=== PATIENT | male | born 1990 | race Caucasian/White ===

== ENCOUNTER 2022-12-04 14:44 | Outpatient (AMB) | payer OTHER, SELFPAY ==
[2022-12-04 15:07] VITALS: BP 126/74; PULSE 88; BMI 30.1
--- NOTE | 2022-12-04 15:07 | MHC.PC.OV ---
Vital Signs 12/04/22 15:07 Height 5 ft 11 in Weight 216 lb BMI 30.1 BP 126/74 Blood Pressure Location Lt brachial Position Sitting Pulse 88 Pulse Source Pulse Oximeter Oxygen Delivery Method Room Air Intake Visit Reasons: New patient-Hormone medication Intake Note: Patient is here as a new patient, requesting increase in hormone pills. Allergies coconut Allergy (Mild, Verified 12/04/22 15:15) hives. penicillin Allergy (Mild, Uncoded 12/04/22 15:15) nausea, vomiting Medication List - Last Reconciled 12/04/22 by Deny Swenson MD atorvastatin 40 mg PO BEDTIME bupropion HCl 150 mg PO BID calcium carbonate-mag hydroxid 700-300 mg tabs PO cholecalciferol (vitamin D3) 25 mcg PO DAILY escitalopram oxalate (Lexapro) 20 mg PO DAILY [estradiol PO] guaifenesin 200 mg PO Q4H PRN guanfacine 1 mg PO BEDTIME hydroxyzine HCl mg PO ibuprofen 400 mg PO Q6H melatonin mg PO naloxone 4 mg/actuation (Narcan) 4 mg intranasal Q3M PRN naltrexone microspheres ER (Vivitrol) 380 mg IM Q4W pyridoxine (vitamin B6) 25 mg PO DAILY simethicone (Gas Relief (simethicone)) 180 mg PO DAILY spironolactone (Aldactone) 100 mg PO DAILY Tobacco use date assessed: 12/04/22 Dental Screening Did you have a dental visit in the last 12 months?: No Did you have a dental problem in the last 6 months where you did not have access to dental care?: No Was dental information given to patient?: No HPI New patient-Hormone medication HPI Details New patient Prior PCP:Claude Blevins Last office visit/CPE: >1 yr Acute issue(s): Requesting hormone medications -He states 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 -Been on hormones x6 months Transgender and would like Referral for Vaginoplasty Transitioning x6 mo Liver concerns PMHx: Alcoholism - in remission. WANDY & MDD. Gender dysphoria; now transitioning. HLD. SurgHx: Gum graft 2010. R Fib fracture FHx: Brother: Bipolar. Mom: Dementia. Dad: HLD, Prostate Cancer SocHx: Quit cigs at 24. Vapes occasionally. EtOH quit Jun 2022 & Vivatrol. No drugs. [facility] Medical History (Updated 12/04/22 @ 16:09 by Charly Payne) Aftercare following right ankle joint replacement surgery Surgical History (Updated 12/04/22 @ 15:20 by Audrey Mckeon [facility]) [place] teeth extracted Family History (Updated 12/04/22 @ 15:22 by Audrey Mckeon CMA) Mother High cholesterol Brother Bipolar 1 disorder Maternal Grandmother Advanced dementia Social History (Updated 12/04/22 @ 15:26 by Audrey Mckeon [employer]) Household Members: Other Both parents involved: No Caregiver staying overnight: No Housing: House Housing Other:: recovery house Are you a primary emergency care tech to a significant other at home: No Do you presently have visiting nurse or other home services: No 75 years or older and lives alone: No Alcohol intake: former Patient Tobacco Use Status: Former Tobacco user e-Cigarette/Vaping Use: Currently Using service: No Current occupational status: unemployed Cognitive needs: No Hearing needs: No Vision needs: No Questionnaire PHQ-9 Over the last 2 weeks, how often have you been bothered by any of the following problems? 1. Little interest or pleasure in doing things: several days 2. Feeling down, depressed, or hopeless: more than half the days 3. Trouble falling or staying asleep, or sleeping too much: more than half the days 4. Feeling tired or having little energy: several days 5. Poor appetite or overeating: more than half the days 6. Feeling bad about yourself - or that you are a failure or have let yourself or your family down: nearly every day 7. Trouble concentrating on things, such as reading the newspaper or watching television: several days 8. Moving or speaking so slowly that other people could have noticed. Or the opposite - being so fidgety or restless that you have been moving around a lot more than usual: not at all 9. Thoughts that you would be better off or of hurting yourself in some way: several days Total score: 13 Source: Developed by Drs. Genaro Recio, Sanjana Avilez, Veto Garcia and colleagues, with an educational navid from [employer]. Thrive Questionnaire I am a: Patient What is your living situation today?: I have a steady place to live Within the past 12 months, did the food you bought not last and you didn't have the money to get more?: Never true Within the past 12 months, did you worry whether your food would run out before you got money to buy more?: Often true Do you have trouble paying for medicines?: No Do you have trouble getting transportation to medical appointments?: No Do you have trouble paying your heating and electricity bill?: No Do you have trouble taking care of your child, family member or friend?: No Do you have trouble with day-to-day activities such as bathing, preparing meals, shopping, managing finances, etc.?: No Are you currently unemployed and looking for a job?: No Are you interested in more education?: Yes AUDIT C Alcohol Use Questionnaire (AUDIT-C) 1. How often do you have a drink containing alcohol?: Never 3. How often do you have six or more drinks on one occasion?: Never Total Score: 0 WANDY-7 AMB Questionnaire WANDY-7 Feeling nervous, anxious, or on edge: 2 = More than half the days Not being able to stop or control worryin = Several days Worrying too much about different things: 2 = More than half the days Trouble relaxin = Several days Being so restless that it is hard to sit still: 2 = More than half the days Becoming easily annoyed or irritable: 0 = Not at all Feeling afraid as if something awful might happen: 2 = More than half the days Total WANDY-7 score (0-4 normal; 5-9 mild; 10-14 moderate; 15-21 severe): 10 Source: Developed by Drs. Genaro Recio, Sanjana Avilez, Veto Garcia and colleagues, with an educational navid from [employer]. Review of Systems Const Denies chills, Denies fatigue, Denies fever(s), Denies headache(s) and Denies weakness ENT Denies dizziness and Denies headache(s) Card Denies chest pain, Denies lightheadedness, Denies dyspnea and Denies other (Palpitations) Resp Denies cough, Denies dyspnea, Denies wheezing and Denies other ( shortness of breath) Musc Denies numbness and Denies tingling Neuro Denies dizziness, Denies headache(s), Denies numbness, Denies tingling, Denies paresthesias and Denies weakness Psych Denies anxiety and Denies depression Endo Denies fatigue Aller/Immun Denies wheezing Physical exam (Primary Care) Vital Signs: Last Vital Signs Pulse 88 12/04/22 15:07 BP 126/74 12/04/22 15:07 Oxygen Delivery Method Room Air 12/04/22 15:07 BMI result Body Mass Index 30.1 Tobacco/Smoking Status: Tobacco use Status Tobacco use date assessed 12/04/22 12/04/22 15:39 Patient Tobacco Use Status Former Tobacco user 12/04/22 15:39 e-Cigarette/Vaping Use Currently Using 12/04/22 15:39 PHQ-9: PHQ-9 Score PHQ-9: Total score 13 12/04/22 15:49 Const General: no acute distress and well developed Nutritional Appearance: well nourished Orientation/consciousness: patient oriented x3 HENMT Head: Yes normocephalic and Yes atraumatic Eyes General: appearance normal, both eyes and all related structures Pupils: Equal, round and reactive pupils present EOM: EOMs intact bilaterally Resp Effort & Inspection: normal respiratory effort Auscultation: clear to auscultation bilaterally Cardio Rate: regular rate Rhythm: regular rhythm Heart sounds: S1 normal heart sound present, S2 normal heart sound present, no gallops, no murmurs and no rubs Neuro General: patient oriented x3 and gait normal Cranial nerves: Yes Equal, round and reactive pupils present Psych Affect: normal affect Assessment and Plan Assessment & Plan (1) 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: Code(s): F64.0 - Transsexualism; 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 therapy Plan: Patient is on estradiol and spironolactone for estrogen therapy and testosterone suppression Follow-up with sand operator at [facility] (2) History of alcohol abuse: Code(s): F10.11 - Alcohol abuse, in remission Plan: Patient is in remission x 8 months Continue Vivitrol Check liver enzymes (3) Depression with anxiety: Code(s): F41.8 - Other specified anxiety disorders Plan: Follow-up with therapist as recommended Continue hydroxyzine and guanfacine (4) Laboratory exam ordered as part of routine general medical examination: Code(s): Z00.00 - Encounter for general adult medical examination without abnormal findings Plan: Check labs Orders: Referrals Plastic Surgery Referral F64.0 - Transsexualism, 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 therapy Coding Level of Care Code New Pt Level 3 (38246) Diagnoses 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 F64.0; Z79.899 History of alcohol abuse F10.11 Depression with anxiety F41.8 Laboratory exam ordered as part of routine general medical examination Z00.00
== END 2022-12-04 16:20 | disposition home or self-care (01) ==
PROVIDERS: PCP Family Medicine; Visit Provider Family Medicine
DX: F64.0 Transsexualism (principal); Z79.899 Other long term (current) drug therapy; F10.11 Alcohol abuse, in remission; F41.8 Other specified anxiety disorders; Z00.00 Encounter for general adult medical examination without abnormal findings
CPT/HCPCS: 99203

== ENCOUNTER 2022-12-27 14:47 | Emergency (ER) | payer OTHER, SELFPAY ==
[2022-12-27 15:06] VITALS: BP 112/60; PULSE 85; RESP 18; TEMP 36.3; O2SAT 95; BMI 30.3
--- NOTE | 2022-12-27 15:07 | ED_ITS ---
HPI - Eye Problem General Chief complaint: Eye Problems Stated complaint: something in R eye Time Seen by Provider: 12/27/22 15:45 Source: patient Mode of arrival: ambulatory Limitations: no limitations History of Present Illness HPI Narrative: Patient is a 32-year-old assigned male at transitioning to female currently on hormone therapy presenting to the emergency department with complaint foreign body sensation to right eye which began after leaving the house today. Patient reports eye felt fine after waking today, applied makeup without issue, then while at the grocery store developed right eye irritation foreign body sensation. Patient attempted to cleanse eye with Q-tip, flushed with water, wiped with cloth all without resolution of sensation. Denies any changes of vision. Does not wear contacts. Patient also requesting prescription for lidocaine cream for chin area for irritation from electrolysis treatments. MD chief complaint: eye pain and eye redness Onset (ago): hour(s) Onset description: sudden Duration: constant Location: right eye Eye Symptoms: foreign body sensation Place: street/outdoors Mechanism: none Severity: moderate If Pain, Quality: other (irritation) Associated symptoms: none Treatments Prior to Arrival: irrigated eye Related Data Home Medications Medication Instructions Recorded Confirmed atorvastatin 40 mg tablet 40 mg PO BEDTIME 12/04/22 12/04/22 bupropion HCl 75 mg tablet 150 mg PO BID 12/04/22 12/04/22 calcium carbonate-magnesium tab PO 12/04/22 12/04/22 hydroxide 700 mg-300 mg chewable tablet cholecalciferol (vitamin D3) 25 25 mcg PO DAILY 12/04/22 12/04/22 mcg (1,000 unit) capsule escitalopram oxalate 20 mg tablet 20 mg PO DAILY 12/04/22 12/04/22 (Lexapro) estradiol PO 12/04/22 12/04/22 guaifenesin 200 mg/5 mL oral liquid 200 mg PO Q4H PRN 12/04/22 12/04/22 guanfacine 1 mg tablet 1 mg PO BEDTIME 12/04/22 12/04/22 hydroxyzine HCl 100 mg tablet mg PO 12/04/22 12/04/22 ibuprofen 400 mg tablet 400 mg PO Q6H 12/04/22 12/04/22 melatonin 5 mg capsule mg PO 12/04/22 12/04/22 naloxone 4 mg/actuation nasal 4 mg intranasal Q3M PRN 12/04/22 12/04/22 spray (Narcan) naltrexone microspheres 380 mg 380 mg IM Q4W 12/04/22 12/04/22 intramuscular suspension,extended release (Vivitrol) pyridoxine (vitamin B6) 50 mg 25 mg PO DAILY 12/04/22 12/04/22 tablet simethicone 180 mg capsule (Gas 180 mg PO DAILY 12/04/22 12/04/22 Relief (simethicone)) spironolactone 100 mg tablet 100 mg PO DAILY 12/04/22 12/04/22 (Aldactone) Previous Rx's Medication Instructions Recorded erythromycin 5 mg/gram (0.5 %) eye 1 appl ophthalmic (eye) DAILY #3.5 12/27/22 ointment grams lidocaine HCl 2 % topical cream 1 appl topical BID PRN pain #118 mL 12/27/22 Allergies Allergy/AdvReac Type Severity Reaction Status Date / Time coconut Allergy Mild hives. Verified 12/27/22 15:11 penicillin Allergy Mild nausea, Uncoded 12/04/22 15:15 vomiting Review of Systems Review of Systems: As per HPI. Yes all other systems are reviewed and are negative Constitutional: Constitutional: Reports as per HPI [facility] Past Medical History Medical History (Updated 12/27/22 @ 17:46 by Marie Domingo NP) Aftercare following right ankle joint replacement surgery Surgical History (Updated 12/04/22 @ 15:20 by Audrey Mckeon CMA) [place] teeth extracted Family History Family History (Updated 12/04/22 @ 15:22 by Audrey Mckeon CMA) Mother High cholesterol Brother Bipolar 1 disorder Maternal Grandmother Advanced dementia Social History Social History (Updated 12/04/22 @ 15:26 by Audrey Mckeon CMA) Household Members: Other Housing: House Housing Other:: recovery house Are you a primary patient care director to a significant other at home: No Do you presently have visiting nurse or other home services: No Alcohol intake: former Patient Tobacco Use Status: Former Tobacco user e-Cigarette/Vaping Use: Currently Using Advance Directives: No Advance Directives Information Provided: No service: No Current occupational status: unemployed Cognitive needs: No Hearing needs: No Vision needs: No Physical Exam Vital Signs: Vital Signs: Last Vital Signs Temp 97.4 F 08/26/23 15:06 Pulse 85 12/27/22 15:06 Resp 18 12/27/22 15:06 BP 112/60 12/27/22 15:06 Pulse Ox 95 12/27/22 15:06 O2 Del Method Room Air 12/27/22 15:06 BMI result Body Mass Index 30.3 Vital signs have been reviewed and appear to be correct. Blood pressure normal. Heart rate normal. Respiratory rate normal. Temperature normal. Oxygen saturation normal. Const: General: cooperative, healthy appearing and no acute distress Orientation/consciousness: oriented to person, oriented to place, oriented to time and patient oriented x3 Limitations: no limitations HEENT: Head: Yes normocephalic and Yes atraumatic Ears: external ears normal General nose exam: Normal external nose present Face and sinus: Yes face symmetric Mouth: oropharynx normal and moist mucous membranes Throat: Yes uvula midline Eyes: Other: 1mm corneal abrasion at 18:00 on Madrigal lamp exam with fluorescein stain, no dendritic lesions noted, no foreign body noted Eyelids: Yes eyelids normal Conjunctivae: conjunctival abnormal right conjunctival injection diffuse Corneas: corneas abnormal on the right fluorescein used and abrasion linear (1mm) and at the following clock position (1800) and fluorescein used Pupils: Equal, round and reactive pupils present EOM: EOMs intact bilaterally Neck: Neck: Yes normal visual inspection and Yes supple Resp: Effort & Inspection: normal respiratory effort and able to speak in complete sentences Auscultation: clear to auscultation bilaterally Cardio: Rate: regular rate Rhythm: regular rhythm Heart sounds: S1 normal heart sound present and S2 normal heart sound present GI: Palpation (GI): Soft to palpation and nontender Auscultation: normoactive bowel sounds : General: Yes no CVA tenderness Back/Spine/Pelvis: Back: no CVA tenderness Skin: General skin exam: elasticity normal and turgor normal Neuro: General: oriented to person, oriented to place, oriented to time, patient oriented x3, moves all extremities, no focal motor deficits and CN's II- XI intact bilaterally Cranial nerves: Yes Equal, round and reactive pupils present Cognition (Neuro): normal cognition Extrem: General: Yes full ROM, Yes no pedal edema and Yes no calf tenderness Psych: Mental Status: mental status grossly normal Affect: normal affect Thought process: Normal thought process present Course Course Course Narrative: This is an RME: Additional HPI, ROS, PE not included below will be deferred to primary provider. Patient is a 32-year-old male to female transgener patient presenting for evaluation of foreign body sensation to right eye that developed soon after makeup application earlier today. Has tried irrigating the eye, has not been able to identify any foreign body present. Plan: Moved to waiting room pending bed availability for ophthalmic examination Medications Administered Discontinued Medications Generic Name Dose Route Start Last Admin Trade Name Quang PRN Reason Stop Dose Admin Fluorescein Sodium 1 strip 12/27/22 15:46 12/27/22 15:49 Fluorescein Sodium Strip EYE-RIGHT 12/27/22 15:47 1 strip ONCE ONE Administration Medical Decision Making Medical Decision Making [facility] Narrative: Patient is a 32-year-old assigned male at transitioning to female currently on hormone therapy presenting to the emergency department with complaint foreign body sensation to right eye which began after leaving the house today. On exam patient is awake, A+Ox3, VS WNL, afebrile, normal neurological exam without focal deficits, PERRL and EOMs intact bilaterally, 1mm corneal abrasion noted at 1800 on Madrigal lamp exam under fluorescein stain. Given reported symptoms and physical exam findings, initial differential includes eye foreign body, corneal abrasion, conjunctivitis. Do not suspect herpes zoster ophthalmicus. Discussed with patient that the abrasion will heal on its own over the next several days, will prescribe erythromycin ointment. Return precautions discussed. Will prescribe lidocaine cream as requested but discussed with patient that this should be prescribed by provider administering electrolysis treatments. Patient verbalized understanding of and agreement with plan. Differential Diagnosis Differential Diagnoses: The differential diagnosis associated with the presentation includes As per MDM. External Record Review External record reviewed: Inpatient record, Office record and Outpatient record Prescription Management I considered prescription management with: Antibiotic Discharge Plan Discharge Clinical Impression: Corneal abrasion Patient Disposition: Home, Self-Care Instructions: Corneal Abrasion (DC) Additional Instructions: You are evaluated in the emergency department today for right eye irritation. Your exam revealed that you have a corneal abrasion to your right eye. You are being prescribed erythromycin ointment. Your eye should heal on its own over the next several days. Return to the emergency department if you develop changes in vision, worsening pain, worsening redness or swelling to your eye, or any other concerning symptoms. Prescriptions: New erythromycin 5 mg/gram (0.5 %) ointment 1 appl ophthalmic (eye) DAILY Qty: 3.5 0RF Rx Instructions: Apply to right eye lidocaine HCl 2 % cream 1 appl topical BID PRN (Reason: pain) Qty: 118 0RF No Action spironolactone [Aldactone] 100 mg tablet 100 mg PO DAILY Rx Instructions: 3 100 mg pills in the morning atorvastatin 40 mg tablet 40 mg PO BEDTIME bupropion HCl 75 mg tablet 150 mg PO BID estradiol 4 mg PO guaifenesin 200 mg/5 mL liquid 200 mg PO Q4H PRN hydroxyzine HCl 100 mg tablet PO ibuprofen 400 mg tablet 400 mg PO Q6H escitalopram oxalate [Lexapro] 20 mg tablet 20 mg PO DAILY Rx Instructions: 30 mg daily melatonin 5 mg capsule PO calcium carbonate-mag hydroxid 700-300 mg tablet,chewable PO naloxone [Narcan] 4 mg/actuation spray,non-aerosol 4 mg intranasal Q3M PRN Rx Instructions: spray 1 dose into ONE nostril; alternate nostrils w each dose until help arrives pyridoxine (vitamin B6) 50 mg tablet 25 mg PO DAILY simethicone [Gas Relief (simethicone)] 180 mg capsule 180 mg PO DAILY guanfacine 1 mg tablet 1 mg PO BEDTIME cholecalciferol (vitamin D3) 25 mcg (1,000 unit) capsule 25 mcg PO DAILY Vivitrol 380 mg suspension,extended rel recon 380 mg IM Q4W Referrals: Medardo Bro [Physician] -
[2022-12-27] MEDS: Fluorescein Sodium STRIP 1 STRIP EYE-RIGHT (15:49)
--- OUTSIDE RECORDS SUMMARY | 2022-12-27 15:59 | XMS_ITS | Continuity of Care Document ---
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 Name Role Phone Not on Staff, PCP Primary Care Physician Unavail able Encounter [facility] Date(s): 05/23/21 - 06/22/21 [facility] [address] [place], [place] [address] Attending Physician: Laura Tolentino Admitting Physician: Laura Tolentino Referring Physician: AdmtrLaura Allergies, Adverse Reactions, Alerts Substance Reaction Severity Status penicillin Active Medications Crutches crutches, # 1 pair, use as directed, 03/12/09 18:02:29 Start Date: 03/12/09 Status: Ordered EpiPen 2-Iker 0.3 mg injectable kit See Instructions, Intramuscular Once, # 1 units, 0 Refills, Soft Stop, 07/12/13 21:22:38 Start Date: 07/12/13 Status: Ordered SMZ-TMP DS oral tablet 1 tablet, By Mouth, 2 times a day, # 6 tablet, 0 Refills, Maintenance, Tablet Start Date: 08/20/09 Stop Date: 08/23/09 Status: Ordered
--- OUTSIDE RECORDS SUMMARY | 2022-12-27 15:59 | XMS_ITS | Continuity of Care Document ---
Author Name Unknown Organization [facility] Address [address] [place] [address]- Care Team Providers Care Neurology Stroke Physician Name Role Phone Not on Staff, PCP Primary Care Physician Unavail able Encounter [facility] Date(s): 06/20/22 - 07/20/22 [facility] [address] [place] [address]- Allergies, Adverse Reactions, Alerts Substance Reaction Severity Status penicillin Vomiting Active Immunizations Given and Recorded Vaccine Date Status Refusal Reason SARS-CoV-2 mRNA ([id number]) vax 06/28/22 Given influenza virus vaccine, inactivated 05/27/22 Give n Medications [place] 0.1 mg/24 hours twice weekly transdermal film, extended release 1 patch, Topically, Every 72 hours, # 8 patch, 0 Refills, Maintenance, 07/02/22 11:30:00 EST, Partial fill upon patient request if the prescription is for a schedule II opioid drug. Start Date: 07/02/22 Status: Ordered folic acid 1 mg oral tablet 1 mg, 1, tablet, By Mouth, Daily, # 30 tablet, Refills 0, Tot. Refills 0, Maintenance, 07/02/22 11:30:00 EST, Print Requisition, Partial fill upon patient request if the prescription is for a schedule II opioid drug. Start Date: 07/02/22 Status: Ordered guanFACINE 1 mg oral tablet, extended release 1 tablet = 1 mg, By Mouth, Daily at bedtime, # 30 tablet, 0 Refills, Maintenance, 07/02/22 11:30:00EST, ER Tablet, Partial fill upon patient request if the prescription is for a schedule II opioid drug. Start Date: 07/02/22 Status: Ordered hydrOXYzine pamoate 50 mg oral capsule 1 capsule = 50 mg, By Mouth, 2 times a day, PRN Anxiety, # 60 capsule, 0 Refills, Maintenance, 07/02/22 11:31:00 EST, Capsule, Partial fill upon patient request if the prescription is for a schedule II opioid drug. Start Date: 07/02/22 Status: Ordered Lexapro 10 mg oral tablet 1 tablet = 10 mg, By Mouth, Daily in AM, # 30 tablet, 0 Refills, Maintenance, 07/02/22 11:29:00 EST, Tablet, Partial fill upon patient request if the prescription is for a schedule II opioid drug. Start Date: 07/02/22 Status: Ordered melatonin 10 mg oral tablet 1 tablet = 10 mg, By Mouth, Daily at bedtime, PRN as needed for insomnia, # 30 tablet, 0 Refills, Maintenance, 07/02/22 11:30:00 EST, Tablet, Partial fill upon patient request if the prescription is for a schedule II opioid drug. Start Date: 07/02/22 Status: Ordered multivitamin with minerals Antioxidant Multiple Vitamins and Minerals oral tablet 1 tablet, By Mouth, Daily, # 30 tablet, 0 Refills, Maintenance, 07/02/22 11:28:00 EST, Tablet, Partial fill upon patient request if the prescription is for a schedule II opioid drug. Start Date: 07/02/22 Status: Ordered Nicoderm C-Q Clear 21 mg/24 hr transdermal film, extended release 1 patch, Topically, Daily, # 30 patch, 0 Refills, Maintenance, 07/02/22 11:30:00 EST, Patch, Partial fill upon patient request if the prescription is for a schedule II opioid drug. Start Date: 07/02/22 Status: Ordered pantoprazole 20 mg oral delayed release tablet = 20 mg, By Mouth, Daily in AM, # 30 tablet, 0 Refills, Maintenance, 07/02/22 11:31:00 EST, EC Tablet Start Date: 07/02/22 Status: Ordered pyridoxine 50 mg oral tablet 50 mg, 1, tablet, By Mouth, Daily, # 30 tablet, Refills 0, Tot. Refills 0, Maintenance, 07/02/22 11:32:00 EST, Print Requisition, Partial fill upon patient request if the prescription is for a schedule II opioid drug. Start Date: 07/02/22 Status: Ordered simethicone 80 mg oral tablet, chewable 160 mg, 2, tablet, Chew, 3 times a day, # 180 tablet, Refills 0, Tot. Refills 0, Maintenance, 07/02/22 11:31:00 EST, Print Requisition, Partial fill upon patient request if the prescription is for a schedule II opioid drug. Start Date: 07/02/22 Status: Ordered thiamine 100 mg oral tablet 100 mg, 1, tablet, By Mouth, Daily, # 30 tablet, Refills 0, Tot. Refills 0, Maintenance, 07/02/22 11:31:00 EST, Print Requisition, Partial fill upon patient request if the prescription is for a schedule II opioid drug. Start Date: 07/02/22 Status: Ordered traZODone 50 mg oral tablet 50 mg, 1, tablet, By Mouth, Daily at bedtime, PRN, # 30 tablet, Refills 0, Tot. Refills 0, Maintenance, Insomnia, 07/02/22 11:31:00 EST, Print Requisition, Partial fill upon patient request if the prescription is for a schedule II opioid drug. Start Date: 07/02/22 Status: Ordered varenicline 0.5 mg tablet 1 tablet = 0.5 mg, By Mouth, 2 times a day, # 60 tablet, 0 Refills, Maintenance, 07/02/22 11:31:00 EST, Tablet, Partial fill upon patient request if the prescription is for a schedule II opioid drug. Start Date: 07/02/22 Status: Ordered Problem List Condition Confirmation Course Effective Dates Status Health St [facility] Informant Obese class I Confirmed Active Social History Social History Type Response Smoking Status Never (less than 100 in lifetime) entered on: 06/26/22 Sex Patient Care team information Care Team Personnel Name: Deyanira Morris RN Position: [facility] RN Supv Member Role: Primary Care Nurse Name: Kaitlynn Maldonado Position: [facility] RN Member Role: Primary Care Nurse Name: Paula Arteaga RN Position: [facility] RN Member Role: Primary Care Nurse Name: Nisha Edwards RN Position: S RN Member Role: Primary Care Nurse Name: Karen Boles RN Position: S RN Member Role: Primary Care Nurse Name: Not on Staff, PCP Position: [facility] Physician (General Medicine) Member Role: PCP Name: Ailyn Brito RN Position: [facility] RN Supv Member Role: Primary Care Nurse Name: Deonna Antunez RN Position: [facility] RN Member Role: Primary Care Nurse Name: Kimberlee Mondragon RN Position: [facility] RN Member Role: Primary Care Nurse Care Team Related Persons Name: NAZ GROVE Address: home [address] [place] [address] Name: LEANNA GROVE Address: home [address] [place] [address]
--- OUTSIDE RECORDS SUMMARY | 2022-12-27 15:59 | XMS_ITS | Continuity of Care Document ---
Author Name Unknown Organization [facility] Address [address] [place] [address]- Care Team Providers Care Marketing Automation Specialist Name Role Phone Not on Staff, PCP Primary Care Physician Unavail able Encounter [facility] Date(s): 05/23/21 - 06/22/21 [facility] [address], [place] [address] Attending Physician: Brenda Flores MD Allergies, Adverse Reactions, Alerts Substance Reaction Severity [...]
== END 2022-12-27 17:52 | disposition home or self-care (01) ==
PROVIDERS: Emergency Provider Emergency Medicine; PCP Family Medicine
DX: S05.01XA Injury of conjunctiva and corneal abrasion without foreign body, right eye, initial encounter (principal); X58.XXXA Exposure to other specified factors, initial encounter; Y93.9 Activity, unspecified; Y92.9 Unspecified place or not applicable; Y99.9 Unspecified external cause status
CPT/HCPCS: 99282; 99283

== ENCOUNTER 2023-01-20 03:56 | Emergency (ER) | payer OTHER, SELFPAY ==
[2023-01-20 04:03] VITALS: BP 100/56; PULSE 75; RESP 16; TEMP 36.5; O2SAT 97; BMI 30.1
[2023-01-20 04:33] VITALS: BP 114/62; PULSE 64; RESP 17; TEMP 36.6; O2SAT 97
--- NOTE | 2023-01-20 05:23 | ED.ABDPAIN ---
HPI - Abdominal Pain General Chief Complaint: Abdominal Pain Stated Complaint: Abd pain Time Seen by Provider: 01/20/23 04:35 Source: patient Mode of arrival: ambulatory History of Present Illness HPI narrative: 32-year-old patient presents with onset of epigastric pain that was attributed to gas and then became intermittent and is rated as a 7/10. Patient treated it with Pepto-Bismol and ibuprofen and states that the pain has completely resolved since that time and denied any nausea, vomiting, fever or chills with the epigastric pain Related Data Home Medications Medication Instructions Recorded Confirmed atorvastatin 40 mg tablet 40 mg PO BEDTIME 12/04/22 12/04/22 bupropion HCl 75 mg tablet 150 mg PO BID 12/04/22 12/04/22 calcium carbonate-magnesium tab PO 12/04/22 12/04/22 hydroxide 700 mg-300 mg chewable tablet cholecalciferol (vitamin D3) 25 25 mcg PO DAILY 12/04/22 12/04/22 mcg (1,000 unit) capsule escitalopram oxalate 20 mg tablet 20 mg PO DAILY 12/04/22 12/04/22 (Lexapro) estradiol PO 12/04/22 12/04/22 guaifenesin 200 mg/5 mL oral liquid 200 mg PO Q4H PRN 12/04/22 12/04/22 guanfacine 1 mg tablet 1 mg PO BEDTIME 12/04/22 12/04/22 hydroxyzine HCl 100 mg tablet mg PO 12/04/22 12/04/22 ibuprofen 400 mg tablet 400 mg PO Q6H 12/04/22 12/04/22 melatonin 5 mg capsule mg PO 12/04/22 12/04/22 naloxone 4 mg/actuation nasal 4 mg intranasal Q3M PRN 12/04/22 12/04/22 spray (Narcan) naltrexone microspheres 380 mg 380 mg IM Q4W 12/04/22 12/04/22 intramuscular suspension,extended release (Vivitrol) pyridoxine (vitamin B6) 50 mg 25 mg PO DAILY 12/04/22 12/04/22 tablet simethicone 180 mg capsule (Gas 180 mg PO DAILY 12/04/22 12/04/22 Relief (simethicone)) spironolactone 100 mg tablet 100 mg PO DAILY 12/04/22 12/04/22 (Aldactone) Previous Rx's Medication Instructions Recorded erythromycin 5 mg/gram (0.5 %) eye 1 appl ophthalmic (eye) DAILY #3.5 12/27/22 ointment grams lidocaine HCl 2 % topical cream 1 appl topical BID PRN pain #118 mL 12/27/22 lidocaine-prilocaine 2.5 %-2.5 % 30 g topical ONCE 1 day #30 grams 01/09/23 topical cream Allergies Allergy/AdvReac Type Severity Reaction Status Date / Time coconut Allergy Mild hives. Verified 12/27/22 15:11 penicillin Allergy Mild nausea, Uncoded 12/04/22 15:15 vomiting Review of Systems Review of Systems Pertinent positives and negatives as stated in HPI [facility] Past Medical History Source: nursing notes reviewed Medical History Aftercare following right ankle joint replacement surgery Surgical History [place] teeth extracted Family History Family History Mother High cholesterol Brother Bipolar 1 disorder Maternal Grandmother Advanced dementia Social History Social History Household Members: Other Housing: House Housing Other:: recovery house Are you a primary patient care to a significant other at home: No Do you presently have visiting nurse or other home services: No Alcohol intake: former Patient Tobacco Use Status: Former Tobacco user e-Cigarette/Vaping Use: Currently Using Advance Directives: No Advance Directives Information Provided: Yes service: No Current occupational status: unemployed Cognitive needs: No Hearing needs: No Vision needs: No Physical Exam ED Vital Signs: Vital Signs - 24 hr 01/20/23 04:03 01/20/23 04:33 Temperature 97.7 F 97.9 F Pulse Rate 75 64 Respiratory Rate 16 17 Blood Pressure 100/56 L 114/62 Pulse Oximetry 97 97 Oxygen Delivery Method Room Air Room Air BMI result Body Mass Index 30.1 VITAL SIGNS: Reviewed. GENERAL: Well developed, well nourished, in no acute distress. HEAD: Normocephalic/atraumatic EYES: PERRLA, EOMI EARS: Ext canals without abnormality NOSE: Nares patent bilateral OROPHARYNX: no oral lesions noted, posterior pharynx clear NECK: Supple, no adenopathy LUNGS: Normal breath sounds. No adventitious sounds or accessory muscle use. SpO2<> CARDIOVASCULAR: Regular rate and rhythm without noted murmurs ABDOMEN: Soft, non-tender, non-distended with bowel sounds. MUSCULOSKELETAL: No tenderness, deformities, or effusions noted on gross inspection. EXTREMITIES: No cyanosis, clubbing or edema. SKIN: Inspection of the skin reveals no rashes NEUROLOGIC: Alert and oriented x 4. Strength and sensation to light touch were grossly intact x 4. Medical Decision Making Medical Decision Making [facility] Narrative: 32-year-old patient with history and clinical presentation, DDX: Gastritis, dyspepsia, biliary colic, lower clinical suspicion for pancreatitis or obstruction. I reviewed all investigations and hematologic indices are negative for leukocytosis, there is a normocytic anemia and no thrombocytopenia. Chemistry indices are grossly within normal limits without NU and no evidence of electrolyte or liver enzyme abnormalities. Urinalysis is negative for UTI or hematuria. Patient is otherwise discharged in my interpretation is that patient experienced an episode of dyspepsia/gastritis that has completely resolved is otherwise discharged with follow-up with the primary care provider. Differential Diagnosis Differential Diagnoses: The differential diagnosis associated with the presentation includes Please see the discussion above Admission/Observation Consideration of admission/observation: Escalation of care including admission/observation considered Please see the discussion above Lab Data [facility] Lab Attestation statement: I reviewed the patient's lab results. Please see the discussion above 01/20/23 05:28 01/20/23 05:28 Labs: Lab Results 01/20/23 01/20/23 Range/Units 05:28 05:57 WBC 9.8 (4.8-10.8) X10*3/uL RBC 4.72 (4.60-5.80) X10*6/uL Hgb 12.5 L (14.0-18.0) g/dl Hct 37.9 L (42.0-52.0) % MCV 80.3 (80.0-98.0) fL MCH 26.5 L (27.0-33.0) pg MCHC 33.0 (31.0-36.0) g/dl RDW 11.4 (11.0-16.0) % Plt Count 248 (160-400) X10*3/uL MPV 9.9 (9.4-12.4) fL Absolute Nucleated RBC 0.000 (0.0-0.012) X10*3/uL Nucleated RBC % (auto) 0.0 (0.0-0.2) /100WBC Sodium 135 (135-145) mmol/L Potassium 4.4 (3.3-5.1) mmol/L Chloride 104 (96-108) mmol/L Carbon Dioxide 21 L (22-29) mmol/L Anion Gap 14 (12-20) BUN 12 (9-16) mg/dL Creatinine 0.95 (0.5-1.4) mg/dL Estim Creat Clear Calc 131.7 Estimated GFR > 60 Random Glucose 134 H (60-115) mg/dL Calcium 9.3 (8.4-10.2) mg/dL Total Bilirubin 0.3 (0.0-1.0) mg/dL AST 23 (5-37) U/L ALT 34 (0-40) U/L Alkaline Phosphatase 55 (39-117) U/L Total Protein 6.9 (6.5-8.0) g/dL Albumin 4.3 (3.5-5.0) g/dL Lipase 17 (8-78) U/L Urine Color Yellow Urine Appearance Clear Urine pH 6.5 (5.0-9.0) Ur Specific [place] 1.025 (1.005-1.025) Urine Protein Negative (Neg-Trace) mg/dL Urine Glucose (UA) Negative (Negative) mg/dL Urine Ketones Trace (Negative) mg/dL Urine Blood Negative (Negative) Urine Nitrite Negative (Negative) Ur Leukocyte Esterase Negative (Negative) Urine RBC 0-2 (0-2) /HPF Urine WBC 0-5 (0-5) /HPF Ur Squamous Epith Cells 3-5 (0-2) /HPF Urine Bacteria None Seen (None Seen) Hyaline Casts 0-2 (0-2) /LPF Discharge Plan Discharge Clinical Impression: Dyspepsia, Gastritis Patient Disposition: Home, Self-Care Instructions: Gastritis (ED), Diet for Stomach Ulcers and Gastritis (ED), Epigastric Pain (ED) Additional Instructions: 1. Resume all home medications as prescribed. 2. Recommend [id number] famotidine, generic version is perfectly fine, 20 mg, take as directed on the outside of the bottle. 3. Please follow-up with primary care provider in the next 1-2 days. Return to the ER for any worsening symptoms. Prescriptions: No Action lidocaine-prilocaine 2.5-2.5 % cream 30 g topical ONCE 1 Days Qty: 30 0RF Rx Instructions: Apply as directed, PRN Procedure erythromycin 5 mg/gram (0.5 %) ointment 1 appl ophthalmic (eye) DAILY Qty: 3.5 0RF Rx Instructions: Apply to right eye lidocaine HCl 2 % cream 1 appl topical BID PRN (Reason: pain) Qty: 118 0RF spironolactone [Aldactone] 100 mg tablet 100 mg PO DAILY Rx Instructions: 3 100 mg pills in the morning atorvastatin 40 mg tablet 40 mg PO BEDTIME bupropion HCl 75 mg tablet 150 mg PO BID estradiol 4 mg PO guaifenesin 200 mg/5 mL liquid 200 mg PO Q4H PRN hydroxyzine HCl 100 mg tablet PO ibuprofen 400 mg tablet 400 mg PO Q6H escitalopram oxalate [Lexapro] 20 mg tablet 20 mg PO DAILY Rx Instructions: 30 mg daily melatonin 5 mg capsule PO calcium carbonate-mag hydroxid 700-300 mg tablet,chewable PO naloxone [Narcan] 4 mg/actuation spray,non-aerosol 4 mg intranasal Q3M PRN Rx Instructions: spray 1 dose into ONE nostril; alternate nostrils w each dose until help arrives pyridoxine (vitamin B6) 50 mg tablet 25 mg PO DAILY simethicone [Gas Relief (simethicone)] 180 mg capsule 180 mg PO DAILY guanfacine 1 mg tablet 1 mg PO BEDTIME cholecalciferol (vitamin D3) 25 mcg (1,000 unit) capsule 25 mcg PO DAILY Vivitrol 380 mg suspension,extended rel recon 380 mg IM Q4W Referrals: Deny Swenson MD [Primary Care Provider] -
[2023-01-20 05:55] LABS: Hematocrit 37.9 % (42.0-52.0); Hemoglobin 12.5 g/dl (14.0-18.0); Mean Corpuscular Hemoglobin 26.5 pg (27.0-33.0); Mean Corpuscular Volume 80.3 fL (80.0-98.0); Mean Platelet Volume 9.9 fL (9.4-12.4); Platelet Count 248 X10*3/uL (160-400); Red Blood Count 4.72 X10*6/uL (4.60-5.80); Red Cell Distribution Width 11.4 % (11.0-16.0); White Blood Count 9.8 X10*3/uL (4.8-10.8)
[2023-01-20 06:04] LABS: Appearance Urine Clear; Color Urine Yellow; Glucose Urine UA Negative (Negative); Leukocyte Esterase Urine Negative (Negative); Nitrite Urine Negative (Negative); PH 6.5 (5.0-9.0); Specific Gravity - Urine 1.025 (1.005-1.025); Urine Blood Negative (Negative); Urine Ketones Trace mg/dL (Negative); Urine Protein Negative (Neg-Trace)
[2023-01-20 06:09] LABS: Bacteria Urine None Seen (None Seen); Hyaline Casts Urine 0-2 /LPF (0-2); RBC Urine 0-2 /HPF (0-2); WBC Urine 0-5 /HPF (0-5)
[2023-01-20 06:19] LABS: Alanine Aminotransferase 34 U/L (0-40); Albumin Level 4.3 g/dL (3.5-5.0); Alkaline Phosphatase 55 U/L (39-117); Anion Gap 14 (12-20); Aspartate Amino Transferase 23 U/L (5-37); Bilirubin Total 0.3 mg/dL (0.0-1.0); Blood Urea Nitrogen 12 mg/dL (9-16); Calcium 9.3 mg/dL (8.4-10.2); Carbon Dioxide 21 mmol/L (22-29); Chloride 104 mmol/L (96-108); Creatinine Clr Calc Pharmacy 131.7; Estimated Glomerular Filt Rate > 60; Glucose Random 134 mg/dL (60-115); Lipase 17 U/L (8-78); Potassium 4.4 mmol/L (3.3-5.1); Sodium 135 mmol/L (135-145); Total Protein 6.9 g/dL (6.5-8.0)
== END 2023-01-20 06:38 | disposition home or self-care (01) ==
PROVIDERS: Emergency Provider Student in an Organized Health Care Education/Training Program; PCP Family Medicine
DX: K29.70 Gastritis, unspecified, without bleeding (principal); R10.13 Epigastric pain; F64.0 Transsexualism; Z87.891 Personal history of nicotine dependence; Z79.899 Other long term (current) drug therapy
CPT/HCPCS: 36415; 80053; 81001; 83690; 85027; 99283

== ENCOUNTER 2023-02-12 12:01 | Outpatient (AMB) | payer OTHER, SELFPAY ==
--- NOTE | 2023-02-12 12:08 | MHC.PC.OV ---
Vital Signs 02/12/23 12:11 Height 5 ft 10 in Weight 210 lb BMI 30.1 BP 122/82 Blood Pressure Location Lt brachial Position Sitting Respiration 20 Pulse 80 Pulse Source Pulse Oximeter Pulse Oximetry (%) 97 Oxygen Delivery Method Room Air Intake Visit Reasons: CPE with f/u labs and health maintenanc Intake Note: Patient is here for her physical today and health maintenance. Patient would like to talk about shedding in the genital area for the last couple of months, on the underside it red and hurts. She is concerned of right ankle pain. Allergies coconut Allergy (Mild, Verified 02/12/23 12:18) hives. penicillin Allergy (Mild, Uncoded 02/12/23 12:18) nausea, vomiting Tobacco use date assessed: 02/12/23 HPI CPE with f/u labs and health maintenanc HPI Details 32 y/o patient presents for a CPE with f/u labs and health maintenance. No recent CPE-labs to review. Some labs drawn in January. Mild anemia. She reports R ankle concerns. Initial injury 2019. Misstepped on some stair while carrying chair which fell on R ankle. XR showed fracture and required ORIF. Healed well in 8-12 weeks. Surgery at [facility]. Pt has complaints of a rash. [facility] Medical History Aftercare following right ankle joint replacement surgery Surgical History [place] teeth extracted Family History Mother High cholesterol Brother Bipolar 1 disorder Maternal Grandmother Advanced dementia Social History Household Members: Other Both parents involved: No Caregiver staying overnight: No Housing: House Housing Other:: recovery house Are you a primary career resource technician to a significant other at home: No Do you presently have visiting nurse or other home services: No 75 years or older and lives alone: No Alcohol intake: former Patient Tobacco Use Status: Former Tobacco user e-Cigarette/Vaping Use: Currently Using service: No Current occupational status: unemployed Cognitive needs: No Hearing needs: No Vision needs: No Review of Systems Const Denies chills, Denies fatigue, Denies fever(s), Denies headache(s) and Denies weakness Eyes Denies change in vision ENT Denies dizziness, Denies headache(s), Denies hearing loss, Denies nasal congestion, Denies sinus pain, Denies sinus pressure and Denies sore throat Card Denies chest pain, Denies lightheadedness, Denies dyspnea and Denies other (palpitations) Resp Denies cough, Denies dyspnea and Denies wheezing GI Denies abdominal pain, Denies melena, Denies hematochezia, Denies change in bowel habits, Denies dyspepsia and Denies nausea Denies hematuria and Denies dysuria Musc Denies abnormal gait, Denies myalgias, Denies arthralgias, Denies numbness and Denies tingling Skin/Breast Denies rash, Denies unusual bruising and Denies wounds Neuro Denies abnormal gait, Denies dizziness, Denies headache(s), Denies memory loss, Denies numbness, Denies Sensory deficit (Neuro), Denies tingling and Denies weakness Psych Denies anxiety, Denies depression and Denies memory loss Endo Denies cold intolerance, Denies fatigue, Denies heat intolerance, Denies polydipsia and Denies polyuria Jerome/Lymph Denies easy bleeding and Denies easy bruising Aller/Immun Denies wheezing Physical exam (Primary Care) Vital Signs: Last Vital Signs Pulse 80 02/12/23 12:11 Resp 20 02/12/23 12:11 BP 122/82 02/12/23 12:11 Pulse Ox 97 02/12/23 12:11 Oxygen Delivery Method Room Air 02/12/23 12:11 BMI result Body Mass Index 30.1 Tobacco/Smoking Status: Tobacco use Status Tobacco use date assessed 12/04/22 02/12/23 12:09 Patient Tobacco Use Status Former Tobacco user 02/12/23 12:09 e-Cigarette/Vaping Use Currently Using 02/12/23 12:09 Const General: no acute distress, well developed, alert and awake Nutritional Appearance: well nourished Orientation/consciousness: patient oriented x3 HENMT Head: Yes normocephalic and Yes atraumatic Ears: hearing grossly normal bilaterally and TM's normal bilaterally General nose exam: Normal external nose present and Normal nares present Mouth: Normal oral and palatal mucosa present and moist mucous membranes Teeth and gingiva: dentition normal Throat: Yes posterior oropharynx normal Eyes General: appearance normal, both eyes and all related structures Pupils: Equal, round and reactive pupils present and Pupil accommodation reflex normal EOM: EOMs intact bilaterally Neck Neck: Yes normal visual inspection, Yes no lymphadenopathy and Yes trachea midline Thyroid: Thyroid normal Carotids: no bruits Lymphatic: no lymphadenopathy noted Chest Chest palpation & inspection: normal inspection of the chest Resp Effort & Inspection: normal respiratory effort Auscultation: clear to auscultation bilaterally Cardio Rate: regular rate Rhythm: regular rhythm Heart sounds: S1 normal heart sound present, S2 normal heart sound present, no gallops, no murmurs and no rubs Bruits: no abdominal aortic bruits and no carotid bruits GI Palpation (GI): No Abdominal aortic bruit present, Soft to palpation, nontender, No hepatosplenomegaly present and No Rebound tenderness present Auscultation: normal bowel sounds General: Yes no CVA tenderness Back/Spine/Pelvis Back: no CVA tenderness Cervical Spine: cervical ROM normal and No Cervical spine tenderness Thoracic/Lumbar Spine: thoraco-lumbar ROM normal, No pain with thoraco-lumbar ROM, No thoracic spinal tenderness and No lumbar spinal tenderness Skin Lesions: no lesions Rashes: no rashes Trauma: no lacerations or abrasions Wounds: no wounds Nails: normal Neuro General: patient oriented x3 Cranial nerves: Yes Equal, round and reactive pupils present Cognition (Neuro): normal cognition Gait exam (Neuro): Normal gait present Motor exam (neuro): 5/5 motor strength present throughout Sensory Exam: No Sensory deficit (Neuro) Deep tendon reflexes (DTR's): Right patellar reflex intensity grade: 2+ and Left patellar reflex intensity grade: 2+ Extrem General: Yes normal to inspection and No edema Psych Appearance: grossly normal Affect: normal affect Attitude: cooperative Thought process: Normal thought process present Assessment and Plan Assessment & Plan (1) Adult general medical exam: Code(s): Z00.00 - Encounter for general adult medical examination without abnormal findings Plan: 32-year-old?patient?presents?for?complete?physical. 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 Also?has?been?referred?to?Plastic?surgery Requesting?letter?of?recommendation?for?further?transition?and?has?a?therapist?who?was?riding?a?recommendation?as?well. I?asked?her?to?give?me?an?outline?of?needed?components?of?letter?and?I?will?review. My?inclination?would?be?to?write?letter?for?patient. Will?review?with?patient?if?I?have?any?concerns. (3) History of fracture of right ankle: Code(s): Z87.81 - Personal history of (healed) traumatic fracture Plan: S/p?ORIF?of?right?ankle She?is?wondering?if?hardware?needs?to?be?removed. I?recommended?she?contact?Orthopedics?at?[facility]?where?surgery?was?done?and?she?can?ask?if?she?needs?a?follow-up (4) Mild anemia: Code(s): D64.9 - Anemia, unspecified Plan: Likely?secondary?to?hormone?therapy No?significant?bleeding Will?repeat?CBC (5) Dyspepsia: Code(s): R10.13 - Epigastric pain Plan: Avoid?trigger Hydrate?well Can?try?soluble?fiber (6) Elevated random blood glucose level: Code(s): R73.09 - Other abnormal glucose (7) Balanitis: Code(s): N48.1 - Balanitis Plan: Transgender?patient?with?Redness?irritation?of?glands?and?foreskin?and?she?is?on?hormone?therapy Likely?balanitis Try?clotrimazole Avoid?excess?moisture If?not?improving?will?refer?to?Urology Orders: Orders Complete Blood Count Auto Diff Today Z00.00 - Encounter for general adult medical examination without abnormal findings Comprehensive [place]. 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
[2023-02-12 12:11] VITALS: BP 122/82; PULSE 80; RESP 20; O2SAT 97; BMI 30.1
== END 2023-02-12 13:05 | disposition home or self-care (01) ==
PROVIDERS: PCP Family Medicine; Visit Provider Family Medicine
DX: Z00.00 Encounter for general adult medical examination without abnormal findings (principal); F64.0 Transsexualism; R73.09 Other abnormal glucose; R10.13 Epigastric pain; N48.1 Balanitis; Z79.899 Other long term (current) drug therapy; Z87.81 Personal history of (healed) traumatic fracture; D64.9 Anemia, unspecified
CPT/HCPCS: 99213; 99395

== ENCOUNTER 2023-03-17 08:53 | Outpatient (REF) | payer OTHER, SELFPAY ==
[2023-03-17 11:38] LABS: MANUAL DIFF FLAG NO
[2023-03-17 11:47] LABS: Basophils Percent Auto 0.5 % (0-2); Eosinophils Absolute Auto 0.2 X10*3/uL (0.0-0.4); Eosinophils Percent Auto 3.4 % (0-4); Hematocrit 39.7 % (42.0-52.0); Hemoglobin 12.8 g/dl (14.0-18.0); Imm Gran Abs Auto 0.02 X10*3/uL (0.00-0.03); Imm Gran Pct Auto 0.3 % (0.0-0.4); Lymphocytes Absolute Auto 1.9 X10*3/uL (1.2-4.9); Lymphocytes Percent Auto 28.9 % (20-40); Mean Corpuscular HGB Conc 32.2 g/dl (31.0-36.0); Mean Corpuscular Volume 77.4 fL (80.0-98.0); Mean Platelet Volume 10.1 fL (9.4-12.4); Monocytes Absolute Auto 0.4 X10*3/uL (0.1-1.2); Monocytes Percent Auto 5.7 % (2-11); Neutrophils Percent Auto 61.2 % (45-73); Platelet Count 274 X10*3/uL (160-400); Red Blood Count 5.13 X10*6/uL (4.60-5.80); Red Cell Distribution Width 13.2 % (11.0-16.0); White Blood Count 6.5 X10*3/uL (4.8-10.8)
[2023-03-17 12:01] LABS: Estimated Average Glucose 114 mg/dL; Hemoglobin A1c % 5.6 % (<6.0)
[2023-03-17 12:08] LABS: Alanine Aminotransferase 32 U/L (0-40); Albumin Level 4.2 g/dL (3.5-5.0); Alkaline Phosphatase 56 U/L (39-117); Anion Gap 12 (12-20); Aspartate Amino Transferase 21 U/L (5-37); Bilirubin Total 0.3 mg/dL (0.0-1.0); Blood Urea Nitrogen 12 mg/dL (9-16); Carbon Dioxide 23 mmol/L (22-29); Chloride 109 mmol/L (96-108); Estimated Glomerular Filt Rate > 60; Glucose Fasting 125 mg/dL (60-99); Potassium 4.3 mmol/L (3.3-5.1); Sodium 140 mmol/L (135-145); Total Protein 6.9 g/dL (6.5-8.0)
[2023-03-17 12:25] LABS: TSH reflex Free T4 1.83 uIU/mL (0.32-4.0)
== END 2023-03-17 08:54 | disposition home or self-care (01) ==
LOC: HO.WFDLDS 08:53
PROVIDERS: Visit Provider Family Medicine
DX: Z00.00 Encounter for general adult medical examination without abnormal findings (principal); R73.01 Impaired fasting glucose
CPT/HCPCS: 36415; 80053; 83036; 84443; 85025

== ENCOUNTER 2023-03-25 10:47 | Outpatient (AMB) | payer OTHER, SELFPAY ==
[2023-03-25 10:54] VITALS: BP 112/70; PULSE 74; O2SAT 96; BMI 31.3
--- NOTE | 2023-03-25 10:54 | MHC.PC.OV ---
Vital Signs 03/25/23 10:54 Height 5 ft 10 in Weight 218 lb 8 oz BMI 31.3 BP 112/70 Blood Pressure Location Rt brachial Position Sitting Pulse 74 Pulse Source Pulse Oximeter Pulse Oximetry (%) 96 Oxygen Delivery Method Room Air Intake Visit Reasons: f/u labs Intake Note: Patient is here to follow up on labs. Allergies coconut Allergy (Mild, Verified 03/25/23 10:57) hives. penicillin Allergy (Mild, Uncoded 03/25/23 10:57) nausea, vomiting Tobacco use date assessed: 03/25/23 HPI f/u labs HPI Details 32 y/o pt presents to f/u labs. Labs were drawn 03/17/23. Reviewed labs with pt. Ongoing anemia. Elevated fasting glucose of 125. A1c 5.6%. [facility] Medical History Aftercare following right ankle joint replacement surgery Surgical History [place] teeth extracted Family History Mother High cholesterol Brother Bipolar 1 disorder Maternal Grandmother Advanced dementia Household Members: Other Both parents involved: No Caregiver staying overnight: No Housing: House Housing Other:: recovery house Are you a primary healthcare network pricing consultant to a significant other at home: No Do you presently have visiting nurse or other home services: No 75 years or older and lives alone: No Alcohol intake: former Patient Tobacco Use Status: Former Tobacco user e-Cigarette/Vaping Use: Currently Using service: No Current occupational status: unemployed Cognitive needs: No Hearing needs: No Vision needs: No Review of Systems Const Denies chills, Denies fatigue, Denies fever(s), Denies headache(s) and Denies weakness ENT Denies dizziness and Denies headache(s) Card Denies dyspnea Resp Denies cough, Denies dyspnea, Denies wheezing and Denies other (shortness of breath) Musc Denies numbness and Denies tingling Neuro Denies dizziness, Denies headache(s), Denies numbness, Denies tingling and Denies weakness Psych Denies anxiety and Denies depression Endo Denies fatigue Aller/Immun Denies wheezing Physical exam (Primary Care) Vital Signs: Last Vital Signs Pulse 74 03/25/23 10:54 BP 112/70 03/25/23 10:54 Pulse Ox 96 03/25/23 10:54 Oxygen Delivery Method Room Air 03/25/23 10:54 BMI result Body Mass Index 31.3 Tobacco/Smoking Status: Tobacco use Status Tobacco use date assessed 03/25/23 03/25/23 10:58 Patient Tobacco Use Status Former Tobacco user 03/25/23 10:58 e-Cigarette/Vaping Use Currently Using 03/25/23 10:58 Const General: well developed; No acute distress Nutritional Appearance: well nourished Orientation/consciousness: patient oriented x3 HENMT Head: Yes normocephalic and Yes atraumatic Eyes General: appearance normal, both eyes and all related structures Pupils: Equal, round and reactive pupils present EOM: EOMs intact bilaterally Resp Effort & Inspection: normal respiratory effort Neuro General: patient oriented x3 and gait normal Cranial nerves: Yes Equal, round and reactive pupils present Psych Affect: normal affect Assessment and Plan Assessment & Plan (1) Mild anemia: Code(s): D64.9 - Anemia, unspecified Plan: Mild?microcytic?anemia Likely?iron?deficiency. Will?recheck?CBC?along?with?labs?to?workup?anemia?including?iron (2) Elevated fasting glucose: Code(s): R73.01 - Impaired fasting glucose Plan: Encouraged?a?diet?low?in?sugars?and?starches Encouraged?exercise?and?weight?control (3) Hyperlipidemia: Code(s): E78.5 - Hyperlipidemia, unspecified Plan: Patient?is?on?atorvastatin Check?lipid (4) Family history of colon cancer: Code(s): Z80.0 - Family history of malignant neoplasm of digestive organs Plan: Family?history?of?colon/rectal?cancer. Referred?to?GI?to?consider?early?surveillance Orders: Orders IRON PROFILE Today D64.9 - Anemia, unspecified Complete Blood Count Auto Diff Today D64.9 - Anemia, unspecified, Z00.00 - Encounter for general adult medical examination without abnormal findings Lipid Panel Today E78.5 - Hyperlipidemia, unspecified, Z00.00 - Encounter for general adult medical examination without abnormal findings Reticulocyte Count Today D64.9 - Anemia, unspecified Basic Metabolic Panel Fasting Today E78.5 - Hyperlipidemia, unspecified Referrals Gastroenterology Referral Z80.0 - Family history of malignant neoplasm of digestive organs Coding Level of Care Code Est Pt Level 3 (57580) Diagnoses Mild anemia D64.9 Elevated fasting glucose R73.01 Hyperlipidemia E78.5 Family history of colon cancer Z80.0
== END 2023-03-25 11:42 | disposition home or self-care (01) ==
PROVIDERS: PCP Family Medicine; Visit Provider Family Medicine
DX: D64.9 Anemia, unspecified (principal); R73.01 Impaired fasting glucose; E78.5 Hyperlipidemia, unspecified; Z80.0 Family history of malignant neoplasm of digestive organs
CPT/HCPCS: 99213

== ENCOUNTER 2023-05-21 17:09 | Emergency (ER) | payer OTHER, SELFPAY ==
[2023-05-21 18:00] VITALS: BP 115/72; PULSE 87; RESP 16; TEMP 37.1; O2SAT 97; BMI 32.3
--- NOTE | 2023-05-21 18:44 | ED_ITS ---
HPI - General Adult General Chief complaint: Skin/Abscess/Foreign Body Stated complaint: scabies Time Seen by Provider: 05/21/23 18:21 Source: patient Mode of arrival: ambulatory Limitations: no limitations History of Present Illness HPI narrative: 32 yold female presents to the ED for generalized itchiness. Patient states she was exposed to confirm case of scabies at the intermediate. Patient states other intermediate members also symptomatic. Patient denies any chest pain or shortness of breath patient denies any chest pain or shortness of Related Data Home Medications Medication Instructions Recorded Confirmed atorvastatin 40 mg tablet 40 mg PO BEDTIME 12/04/22 12/04/22 bupropion HCl 75 mg tablet 150 mg PO BID 12/04/22 12/04/22 calcium carbonate-magnesium tab PO 12/04/22 12/04/22 hydroxide 700 mg-300 mg chewable tablet cholecalciferol (vitamin D3) 25 25 mcg PO DAILY 12/04/22 12/04/22 mcg (1,000 unit) capsule escitalopram oxalate 20 mg tablet 20 mg PO DAILY 12/04/22 12/04/22 (Lexapro) guanfacine 1 mg tablet 1 mg PO BEDTIME 12/04/22 12/04/22 hydroxyzine HCl 100 mg tablet mg PO 12/04/22 12/04/22 ibuprofen 400 mg tablet 400 mg PO Q6H 12/04/22 12/04/22 melatonin 5 mg capsule mg PO 12/04/22 12/04/22 naloxone 4 mg/actuation nasal 4 mg intranasal Q3M PRN 12/04/22 12/04/22 spray (Narcan) naltrexone microspheres 380 mg 380 mg IM Q4W 12/04/22 12/04/22 intramuscular suspension,extended release (Vivitrol) pyridoxine (vitamin B6) 50 mg 25 mg PO DAILY 12/04/22 12/04/22 tablet simethicone 180 mg capsule (Gas 180 mg PO DAILY 12/04/22 12/04/22 Relief (simethicone)) spironolactone 100 mg tablet 100 mg PO DAILY 12/04/22 12/04/22 (Aldactone) estradiol PO 02/12/23 Previous Rx's Medication Instructions Recorded lidocaine HCl 2 % topical cream 1 appl topical BID PRN pain #118 mL 12/27/22 lidocaine-prilocaine 2.5 %-2.5 % 30 g topical ONCE 1 day #30 grams 01/09/23 topical cream calcium polycarbophil 625 mg 625 mg PO DAILY 30 days #30 tabs 02/12/23 tablet (FiberCon) clotrimazole 1 % topical cream 1 appl topical BID 2 weeks #45 02/12/23 grams permethrin 5 % topical cream 1 appl topical Q14D 2 doses #60 05/21/23 grams Allergies Allergy/AdvReac Type Severity Reaction Status Date / Time coconut Allergy Mild hives. Verified 05/21/23 18:12 penicillin Allergy Mild nausea, Uncoded 03/25/23 10:57 vomiting Review of Systems Review of Systems: Itchiness. Lung rash. Scabies Yes all other systems are reviewed and are negative PMFSH Past Medical History Onset Date is defined in the Problem List Problems that require an onset date and time if occurred within 24 hrs of ar rival to the ED Aortic Dissection and Rupture; Neurologic impairment; Cardiopulmonary Arrest; Endotracheal Intubation; Insertion or Replacement of Mechanical Circulatory Ass ist Device Medical History Aftercare following right ankle joint replacement surgery Surgical History [place] teeth extracted Family History Family History Mother High cholesterol Brother Bipolar 1 disorder Maternal Grandmother Advanced dementia Social History Social History Household Members: Other Housing: House Housing Other:: recovery house Are you a primary career coach to a significant other at home: No Do you presently have visiting nurse or other home services: No Alcohol intake: former Patient Tobacco Use Status: Former Tobacco user e-Cigarette/Vaping Use: Currently Using Advance Directives: No Advance Directives Information Provided: No service: No Current occupational status: unemployed Cognitive needs: No Hearing needs: No Vision needs: No Physical Exam ED Vital Signs: Vital Signs - 24 hr 05/21/23 18:00 Temperature 98.8 F Pulse Rate 87 Respiratory Rate 16 Blood Pressure 115/72 Pulse Oximetry 97 Oxygen Delivery Method Room Air BMI result Body Mass Index 32.3 Const General: cooperative, healthy appearing, comfortable, no acute distress, well developed, alert, awake and Physically active Orientation/consciousness: oriented to person, oriented to place, oriented to time and patient oriented x3 [facility] Head: Yes normal to inspection, Yes No palpable skull fracture present, Yes normocephalic and Yes atraumatic Eyes General: appearance normal, both eyes and all related structures Neck Neck: Yes normal visual inspection, Yes full ROM and Yes no meningeal signs Thyroid: Thyroid normal Chest Chest palpation & inspection: normal inspection of the chest and normal palpatio n of entire chest wall Resp Effort & Inspection: normal respiratory effort and able to speak in complete sentences Auscultation: clear to auscultation bilaterally Cardio Jugular venous distension: no JVD Heart sounds: S1 normal heart sound present and S2 normal heart sound present GI Inspection: Yes normal to inspection and No abdominal wall ecchymosis Palpation (GI): Soft to palpation, not firm, nontender, no guarding and not rigid General: No CVA tenderness and Yes no CVA tenderness Back/Spine/Pelvis Back: no CVA tenderness, No CVA tenderness and No back tenderness Skin Other: Leg excoriation General skin exam: no rashes or lesions noted, elasticity normal and turgor normal Neuro General: oriented to person, oriented to place, oriented to time, patient oriented x3, gait normal, tone normal, moves all extremities, Normal light touch and pain sensation, no meningeal signs, no focal motor deficits, CN's II-XI intact bilaterally and normal sensation to monofilament Extrem General: Yes normal to inspection, Yes full ROM and Yes capillary refill normal Psych Appearance: grossly normal and well kempt Medical Decision Making Medical Decision Making MDM Narrative: 32-year-old female presents ED for generalized itchiness. Patient was exposed to confirm scabies case at intermediate. Other intermediate members also symptomatic. Patient denies any anaphylactic symptoms. Patient denies any chest pain or shortness of breath. Differential Diagnosis Differential Diagnoses: The differential diagnosis associated with the presentation includes (Scabies. Contact dermatitis. Allergic reaction. Bug bites) Independent Historian Clinical information obtained from an independent historian. History obtained from or confirmed by: Other ([facility]) External Record Review External record reviewed: Other (Prior visits) Prescription Management I considered prescription management with: Other (Permetherin) Social Determinants Patient?s care significantly limited by Social Determinants of Health including: Other Social Determinant of Health (Lives in intermediate) Discharge Plan Discharge Clinical Impression: Scabies Patient Disposition: Home, Self-Care Instructions: Scabies (ED) Additional Instructions: Return to ED immediately for any facial swelling, tongue swelling, shortness of breath, chest pain, sensation of throat closing, facial swelling, fever, chills, shortness of breath, leg swelilng, calf pain, or any other concerning symptoms. Please follow-up with primary care provider Prescriptions: New permethrin 5 % cream 1 appl topical Q14D Qty: 60 0RF Rx Instructions: apply second treatment 14 days after first treatment if live lice remain. Leave on for 8-14 hours and then wash off by shower or bath. No Action lidocaine-prilocaine 2.5-2.5 % cream 30 g topical ONCE 1 Days Qty: 30 0RF Rx Instructions: Apply as directed, PRN Procedure lidocaine HCl 2 % cream 1 appl topical BID PRN (Reason: pain) Qty: 118 0RF clotrimazole 1 % cream 1 appl topical BID 14 Days Qty: 45 1RF calcium polycarbophil [FiberCon] 625 mg tablet 625 mg PO DAILY 30 Days Qty: 30 2RF spironolactone [Aldactone] 100 mg tablet 100 mg PO DAILY Rx Instructions: 3 100 mg pills in the morning atorvastatin 40 mg tablet 40 mg PO BEDTIME bupropion HCl 75 mg tablet 150 mg PO BID hydroxyzine HCl 100 mg tablet PO ibuprofen 400 mg tablet 400 mg PO Q6H escitalopram oxalate [Lexapro] 20 mg tablet 20 mg PO DAILY Rx Instructions: 30 mg daily melatonin 5 mg capsule PO calcium carbonate-mag hydroxid 700-300 mg tablet,chewable PO naloxone [Narcan] 4 mg/actuation spray,non-aerosol 4 mg intranasal Q3M PRN Rx Instructions: spray 1 dose into ONE nostril; alternate nostrils w each dose until help arrives pyridoxine (vitamin B6) 50 mg tablet 25 mg PO DAILY simethicone [Gas Relief (simethicone)] 180 mg capsule 180 mg PO DAILY guanfacine 1 mg tablet 1 mg PO BEDTIME cholecalciferol (vitamin D3) 25 mcg (1,000 unit) capsule 25 mcg PO DAILY Vivitrol 380 mg suspension,extended rel recon 380 mg IM Q4W estradiol 6 mg PO Interventions: ED Discharge Assessment Last Done: 05/21/23 18:54 Discharge Date/Time: 05/21/23 19:14 Print Language: Belarusian
== END 2023-05-21 19:14 | disposition home or self-care (01) ==
PROVIDERS: Emergency Provider Emergency Medicine
DX: B86 Scabies (principal); Z79.899 Other long term (current) drug therapy; F17.200 Nicotine dependence, unspecified, uncomplicated; Z71.6 Tobacco abuse counseling
CPT/HCPCS: 99282; 99283

== ENCOUNTER 2023-07-01 11:27 | Outpatient (AMB) | payer OTHER, SELFPAY ==
--- NOTE | 2023-07-01 11:29 | MHC.OFFVIS ---
Intake Vital Signs 07/01/23 11:34 Height 5 ft 9 in Weight 210 lb 2 oz BMI 31.0 BP 122/63 Blood Pressure Location Lt brachial Position Sitting Pulse 84 Intake Visit Reasons: Family Hx Colon Cancer Intake Note: Patient is seen in office for consults on family history of colon cancer. Pt c/o: couple months ago had blood in the stool, denies nausea, vomit, diarrhea, constipation, or any other concerns Assistant Associate Full Professor Required: No Accompanied by: Self / Same As Patient Allergies coconut Allergy (Mild, Verified 07/01/23 11:31) hives. penicillin Allergy (Mild, Uncoded 07/01/23 11:31) nausea, vomiting Medication List - Last Reconciled 07/01/23 by Marsha Garcia PA-C bupropion HCl 150 mg PO BID calcium carbonate-mag hydroxid 700-300 mg tabs PO calcium polycarbophil (FiberCon) 625 mg PO DAILY 30 days cholecalciferol (vitamin D3) 25 mcg PO DAILY escitalopram oxalate (Lexapro) 20 mg PO DAILY [estradiol PO] guanfacine 1 mg PO BEDTIME hydroxyzine HCl mg PO ibuprofen 400 mg PO Q6H lidocaine HCl 2% 1 appl topical BID PRN lidocaine-prilocaine 2.5-2.5 % 30 grams topical ONCE 1 day melatonin mg PO naloxone 4 mg/actuation (Narcan) 4 mg intranasal Q3M PRN naltrexone microspheres ER (Vivitrol) 380 mg IM Q4W permethrin 5% 1 appl topical Q14D 2 doses pyridoxine (vitamin B6) 25 mg PO DAILY simethicone (Gas Relief (simethicone)) 180 mg PO DAILY spironolactone (Aldactone) 100 mg PO DAILY HPI HPI Comments History of Present Illness Details A 33-year-old female referred with family history of colon cancer. She presents today she says it is unclear if there is history of colon or prostate cancer. Father hx is very unclear- but dx@ 50-he does have a colostomy bag- this is worrisome Intermittent rectal bleeding-some times blood appear dark red -low abdominal cramping-not always relieved after BM- Says awaiting [facility] hospital surgery @ [facility]-taking hormones x 14 months- estrogen/ T milo- ETOH- none for > 1 year Otherwise-healthy- good appetite. [facility] Medical History Aftercare following right ankle joint replacement surgery Surgical History History of ankle surgery [place] teeth extracted Family History Mother High cholesterol Brother Bipolar 1 disorder Maternal Grandmother Advanced dementia Father Rectal cancer Prostate CA Social History Household Members: Other Housing: House Housing Other:: recovery house Are you a primary youth career specialist to a significant other at home: No Do you presently have visiting nurse or other home services: No Alcohol intake: former Patient Tobacco Use Status: Former Tobacco user e-Cigarette/Vaping Use: Currently Using service: No Current occupational status: unemployed Cognitive needs: No Hearing needs: No Vision needs: No Review of Systems Const All systems reviewed & are unremarkable except as noted in HPI and below Card Denies chest pain and Denies dyspnea Resp Denies dyspnea GI Reports hematochezia, Reports GI cramping, Denies heartburn, Denies nausea and Denies vomiting Physical Exam Vital Signs: Last Vital Signs Pulse 84 07/01/23 11:34 BP 122/63 07/01/23 11:34 BMI result Body Mass Index 31.0 Const General: cooperative, healthy appearing, comfortable and no acute distress Orientation/consciousness: patient oriented x3 Limitations: no limitations Eyes Sclerae: sclerae normal Resp Effort & Inspection: normal respiratory effort and able to speak in complete sentences Auscultation: clear to auscultation bilaterally, no rales, no rhonchi and no wheezes Cardio Rate: regular rate Rhythm: regular rhythm Heart sounds: S1 normal heart sound present and S2 normal heart sound present GI Palpation (GI): Soft to palpation and nontender Auscultation: normal bowel sounds Skin General skin exam: other (moles- varing sizes-) Neuro General: patient oriented x3 Extrem General: Yes full ROM Psych Appearance: well kempt Mental Status: mental status grossly normal Speech and movement: Clear speech present Affect: normal affect Attitude: cooperative Thought process: Normal thought process present Thought content: Normal thought content present Insight: Good insight present (Psych) Judgement: Good judgement present (Psych) Assessment & Plan Assessment & Plan (1) Family history of colon cancer: Comment: father @ 50 hx unclear- colostomy Code(s): Z80.0 - Family history of malignant neoplasm of digestive organs (2) Rectal bleeding: Comment: intermittent-may be hemorrhoidal Code(s): K62.5 - Hemorrhage of anus and rectum Plan: HFD Will call pt / (3) 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: Comment: very pleasant- 33 y/o- rectal bleed, fam hx CRC-taking hormones- preparing for surgery-consider colonoscopy Code(s): F64.0 - Transsexualism; 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
[2023-07-01 11:34] VITALS: BP 122/63; PULSE 84; BMI 31.0
== END 2023-07-01 12:15 | disposition home or self-care (01) ==
PROVIDERS: Visit Provider Physician Assistant
DX: Z80.0 Family history of malignant neoplasm of digestive organs (principal); K62.5 Hemorrhage of anus and rectum; F64.0 Transsexualism; Z79.899 Other long term (current) drug therapy
CPT/HCPCS: 99204

== ENCOUNTER → 2023-07-01 11:27 | Outpatient (BNVA) | payer OTHER, SELFPAY | PROVIDERS: Visit Provider Physician Assistant | DX: K62.5 Hemorrhage of anus and rectum (principal); F64.0 Transsexualism; Z80.0 Family history of malignant neoplasm of digestive organs; Z79.899 Other long term (current) drug therapy | CPT/HCPCS: 99202 ==

== ENCOUNTER 2024-02-18 10:01 | Day surgery (SDC) | payer OTHER, SELFPAY ==
--- NOTE | 2024-02-17 09:24 | HO.ANESPROP2 ---
Documented by User: Gillian Bullard NP 02/17/24 09:35 HPI - Anesthesia Eval Consult details Narrative: Debbie She/Her 33yo F for Colonoscopy (transitioned to female, on estrogen) Hx ETOH abuse, none >1 year [facility] Active Problems Active Problems: All Active Problems Rectal bleeding (Acute) Family history of colon cancer (Acute) Hyperlipidemia (Acute) Elevated fasting glucose (Acute) Balanitis (Acute) Elevated random blood glucose level (Acute) Mild anemia (Acute) Rash (Acute) History of fracture of right ankle (Acute) Adult general medical exam (Acute) Depression with anxiety (Acute) 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 (Acute) Laboratory exam ordered as part of routine general medical examination (Acute) History of alcohol abuse (Acute) Past Medical History Medical History Aftercare following right ankle joint replacement surgery Family History Family History Mother High cholesterol Brother Bipolar 1 disorder Maternal Grandmother Advanced dementia Father Rectal cancer Prostate CA Surgical History Surgical History (Updated 02/18/24 @ 12:19 by Tatyana Mathis MD) Transgender with history of gender affirmation surgery History of ankle surgery [place] teeth extracted Social History Social History Household Members: Other Housing: House Housing Other:: recovery house Are you a primary wound care specialist to a significant other at home: No Do you presently have visiting nurse or other home services: No Alcohol intake: former Patient Tobacco Use Status: Former Tobacco user e-Cigarette/Vaping Use: Currently Using Use of substances other than those prescribed or required for medical reasons: No Have you been hit, kicked, punched, or otherwise hurt by someone within the past year? If so, by whom?: No Are you DNR?: No Advance Directives: No Advance Directives Information Provided: Yes Recently lost weight without trying: No service: No Current occupational status: unemployed Cognitive needs: No Hearing needs: No Vision needs: No Meds Allergies Allergy/AdvReac Type Severity Reaction Status Date / Time coconut Allergy Mild hives. Verified 07/01/23 11:31 penicillin Allergy Mild nausea, Uncoded 07/01/23 11:31 vomiting Home Medications ?Medication ?Instructions ?Recorded ?Confirmed ?Last Taken ?Type bupropion HCl 75 mg tablet 150 mg PO BID 12/04/22 07/01/23 Unknown History calcium carbonate-magnesium tab PO 12/04/22 07/01/23 Unknown History hydroxide 700 mg-300 mg chewable tablet cholecalciferol (vitamin D3) 25 25 mcg PO DAILY 12/04/22 07/01/23 Unknown History mcg (1,000 unit) capsule escitalopram oxalate 20 mg tablet 20 mg PO DAILY 12/04/22 07/01/23 Unknown History (Lexapro) guanfacine 1 mg tablet 1 mg PO BEDTIME 12/04/22 07/01/23 Unknown History hydroxyzine HCl 100 mg tablet mg PO 12/04/22 07/01/23 Unknown History ibuprofen 400 mg tablet 400 mg PO Q6H 12/04/22 07/01/23 Unknown History melatonin 5 mg capsule mg PO 12/04/22 07/01/23 Unknown History naloxone 4 mg/actuation nasal 4 mg intranasal Q3M PRN 12/04/22 07/01/23 Unknown History spray (Narcan) naltrexone microspheres 380 mg 380 mg IM Q4W 12/04/22 07/01/23 Unknown History intramuscular suspension,extended release (Vivitrol) pyridoxine (vitamin B6) 50 mg 25 mg PO DAILY 12/04/22 07/01/23 Unknown History tablet simethicone 180 mg capsule (Gas 180 mg PO DAILY 12/04/22 07/01/23 Unknown History Relief (simethicone)) spironolactone 100 mg tablet 100 mg PO DAILY 12/04/22 07/01/23 Unknown History (Aldactone) estradiol PO 02/12/23 07/01/23 Unknown History Assessment and Plan Assessment Anesthesia Assessment: Chart Reviewed Documented by User: Tatyana Mathis MD 02/18/24 12:26 HPI - Anesthesia Eval Consult details Narrative: Debbie She/Her 33yo F for Colonoscopy (transitioned to female, on estrogen) Hx ETOH abuse. On and off. Last 2 days ago. 1 pint of absolut vodka H/o drug abuse. States not for over a year [facility] Active Problems Active Problems: All Active Problems Rectal bleeding (Acute) Family history of colon cancer (Acute) Hyperlipidemia (Acute) Elevated fasting glucose (Acute) Balanitis (Acute) Elevated random blood glucose level (Acute) Mild anemia (Acute) Rash (Acute) History of fracture of right ankle (Acute) Adult general medical exam (Acute) Depression with anxiety (Acute) 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 (Acute) Laboratory exam ordered as part of routine general medical examination (Acute) History of alcohol abuse (Acute)- 2 days ago 1 pint of absolut vodka H/o drug abuse. Not since June 2022 Past Medical History Medical History Aftercare following right ankle joint replacement surgery Family History Family History Mother High cholesterol Brother Bipolar 1 disorder Maternal Grandmother Advanced dementia Father Rectal cancer Prostate CA Family history of problems with anesthesia: No Surgical History Surgical History (Updated 02/18/24 @ 12:19 by Tatyana Mathis MD) Transgender with history of gender affirmation surgery History of ankle surgery [place] teeth extracted History of Problems with Anesthesia: No Social History Social History Household Members: Other Housing: House Housing Other:: recovery house Are you a primary wound care specialist to a significant other at home: No Do you presently have visiting nurse or other home services: No Alcohol intake: former Patient Tobacco Use Status: Former Tobacco user e-Cigarette/Vaping Use: Currently Using Use of substances other than those prescribed or required for medical reasons: No Have you been hit, kicked, punched, or otherwise hurt by someone within the past year? If so, by whom?: No Are you DNR?: No Advance Directives: No Advance Directives Information Provided: Yes Recently lost weight without trying: No service: No Current occupational status: unemployed Cognitive needs: No Hearing needs: No Vision needs: No Meds Allergies Allergy/AdvReac Type Severity Reaction Status Date / Time coconut Allergy Mild hives. Verified 07/01/23 11:31 penicillin Allergy Mild nausea, Uncoded 07/01/23 11:31 vomiting Home Medications ?Medication ?Instructions ?Recorded ?Confirmed ?Last Taken ?Type bupropion HCl 75 mg tablet 150 mg PO BID 12/04/22 07/01/23 Unknown History calcium carbonate-magnesium tab PO 12/04/22 07/01/23 Unknown History hydroxide 700 mg-300 mg chewable tablet cholecalciferol (vitamin D3) 25 25 mcg PO DAILY 12/04/22 07/01/23 Unknown History mcg (1,000 unit) capsule escitalopram oxalate 20 mg tablet 20 mg PO DAILY 12/04/22 07/01/23 Unknown History (Lexapro) guanfacine 1 mg tablet 1 mg PO BEDTIME 12/04/22 07/01/23 Unknown History hydroxyzine HCl 100 mg tablet mg PO 12/04/22 07/01/23 Unknown History ibuprofen 400 mg tablet 400 mg PO Q6H 12/04/22 07/01/23 Unknown History melatonin 5 mg capsule mg PO 12/04/22 07/01/23 Unknown History naloxone 4 mg/actuation nasal 4 mg intranasal Q3M PRN 12/04/22 07/01/23 Unknown History spray (Narcan) naltrexone microspheres 380 mg 380 mg IM Q4W 12/04/22 07/01/23 Unknown History intramuscular suspension,extended release (Vivitrol) pyridoxine (vitamin B6) 50 mg 25 mg PO DAILY 12/04/22 07/01/23 Unknown History tablet simethicone 180 mg capsule (Gas 180 mg PO DAILY 12/04/22 07/01/23 Unknown History Relief (simethicone)) spironolactone 100 mg tablet 100 mg PO DAILY 12/04/22 07/01/23 Unknown History (Aldactone) estradiol PO 02/12/23 07/01/23 Unknown History Exam Height,Weight and Vital Signs: Height 5 ft 9 in Weight 93.894 kg Vital Signs Temp Pulse Resp BP Pulse Ox O2 Del Method 02/18/24 11:17 98.1 F 78 16 102/55 L 98 Room Air Airway Mallampati Class: II TM Dist: >3cm Neck ROM: Full Loose/Missing/Broken Teeth: No (Denies broken, loose, missing teeth) Heart: RRR Lungs: CTAB Assessment and Plan Assessment Anesthesia Assessment: Anesthesia Plan Discussed and Chart Reviewed Final Anesthetic Review Family History of Problems with Anesthesia: No History of Problems with Anesthesia: No NPO: Yes ASA Class: III Final Preanesthetic Review: No Changes in Pt Med Stat, Meds/Allgs Chart Reviewed, Consent Obtained/Reviewed and Anes Risks/Benef Reviewed Patient Risk: Intermediate Procedure Risk: Low Assessment/Block/Sedation in SS: Assess/Block/Sedation-SS Anesthetic Plan Anesthetic Plan: TIVA Disposition: Standard PACU
[2024-02-18 11:17] VITALS: BP 102/55; PULSE 78; RESP 16; TEMP 36.7; O2SAT 98; BMI 30.6
[2024-02-18] MEDS: Lactated Ringers 1,000 ML 100 ML IVCONT (11:24)
--- NOTE | 2024-02-18 12:55 | P.HPSUR_ITS ---
Pre-Procedural Eval Section A - 24 Hr Update-Section A only Date of Service: 02/18/24 Section B - Complete if H&P > 30 days Chief Complaint: Family history of malignant neoplasm of digestive Details of Present Illness: father with crc Relevant Family History (Specify if Yes): Yes Relevant Social History: None Present Medications: see Short Stay Collaborative assessment Medical History: Significant History (depression with anxiety ) History of Previous Operations: Relevant previous surgery/procedure and date(s) (Transgender with history of gender affirmation surgery History of ankle surgery [place] teeth extracted) Allergies: Allergies Allergy/AdvReac Type Severity Reaction Status Date / Time coconut Allergy Mild hives. Verified 07/01/23 11:31 penicillin Allergy Mild nausea, Uncoded 07/01/23 11:31 vomiting Review of Systems Sugical H&P ROS: Negative: Constitution, Cardiovascular, Respiratory, Neurological, Psychiatric, Hem-Onc, Allergic/Immunologic, Gastrointestinal, Genitourinary, Musculoskeletal, Integumentary, Endocrine and Eyes/Ears/Nose/Throat Exam Surgical H&P Exam: Normal: HEENT, Normal: Heart, Normal: Lungs, Normal: Extremities, Normal: Abdomen, Normal: Skin and Normal: Neurological Plan Diagnosis/Plan: Unchanged I have reviewed the history and physical and performed a pertinent physical examination on my patient. No changes have occurred unless specified. Time Spent With Patient Time: Total time managing care of this patient today ____ minutes.
[2024-02-18 13:40] VITALS: BP 90/47; PULSE 68; RESP 16; TEMP 36.4; O2SAT 97
[2024-02-18 13:45] VITALS: BP 96/50; PULSE 63; RESP 16; O2SAT 96
[2024-02-18 13:50] VITALS: BP 95/51; PULSE 60; RESP 16; O2SAT 96
[2024-02-18 13:55] VITALS: BP 95/48; PULSE 57; RESP 16; O2SAT 96
[2024-02-18 14:10] VITALS: BP 105/68; PULSE 71; RESP 20; TEMP 37.1; O2SAT 99
--- NOTE | 2024-02-22 10:30 | P.OPN-COLO_ITS ---
Colonoscopy Operative Note Operative Note Date of Service: 02/18/24 Narrative: Operative Information Procedure Description: Colonoscopy Indication: FH of CRC, abdominal cramp pains and abn bowel habits Anesthesia: MAC COLONOSCOPY Instrument: Olympus variable stiffness pediatric scope 190L Colonoscopy Monitoring: Vital signs and clinical assessment, continuous EKG monitoring, Pulse oximetry, Carbon Dioxide monitoring and blood pressure monitoring were done throughout the procedure. Colon withdrawal time was 8 minutes. Procedure: The patient was placed in the left lateral decubitis position and pre-procedure medications were administered. After a digital rectal examination of the ano-rectum, the video colonoscope was inserted into the rectum and advanced through the colon to the cecum/TI. The colonoscope was slowly withdrawn in a retrograde panoramic fashion and the colon mucosa was carefully examined including a retroflexed view of the rectum. Findings and interventions are described below. Procedure Difficulty: easy Findings: Terminal Ileum-normal, random bx taken Random colon bx taken Cecum:normal Ascending Colon: 5-8 mm sessile polyp removed with cold snare Transverse Colon -normal Descending Colon:normal Sigmoid Colon: 6-9 mm sessile polyp removed with cold snare Rectum: Retroflexion with small internal hemorrhoids seen, grade I Anorectum - normal Intervention: cold forceps, cold snare Colon preparation: [place] Bowel Preparation Scale Right colon; 2 Transverse colon: 2 Left colon; 2 (0 = Unprepared colon segment with mucosa not seen due to solid stool that cannot be cleared. 1 = Portion of mucosa of the colon segment seen, but other areas of the colon segment not well seen due to staining, residual stool and/or opaque liquid. 2 = Minor amount of residual staining, small fragments of stool and/or opaque liquid, but mucosa of colon segment seen well. 3 = Entire mucosa of colon segment seen well with no residual staining, small fragments of stool or opaque liquid) Impression and Post Procedure Diagnosis: colon polyps internal hemorrhoids Plan: High fiber diet leaflet Avoid straining at stool, epsom salts and sitz bath, anusol supps or cream Repeat Colonoscopy in 5 years due to polyps and FH of CRC or earlier if clinically indicated Above findings were reviewed with the patient and relevant handouts were provided if indicated.
== END 2024-02-18 15:02 | disposition home or self-care (01) ==
PROVIDERS: PCP Nurse Practitioner Gerontology; Visit Provider Internal Medicine Gastroenterology
PROC: 0DJD8ZZ Inspection of Lower Intestinal Tract, Via Natural or Artificial Opening Endoscopic (ICD-10-PCS; CPT 45378; principal; 2024-02-18 13:20)
DX: D12.5 Benign neoplasm of sigmoid colon (principal); K64.0 First degree hemorrhoids; Z80.0 Family history of malignant neoplasm of digestive organs; E78.5 Hyperlipidemia, unspecified; F64.0 Transsexualism; Z79.890 Hormone replacement therapy; Z79.899 Other long term (current) drug therapy; Z87.891 Personal history of nicotine dependence
CPT/HCPCS: 45385; 45380; 88305; J2003; J2250; J2704

== ENCOUNTER → 2024-02-18 10:01 | Outpatient (BNV) | payer OTHER, SELFPAY | PROVIDERS: PCP Nurse Practitioner Gerontology; Visit Provider Internal Medicine Gastroenterology | DX: R10.9 Unspecified abdominal pain (principal); Z80.0 Family history of malignant neoplasm of digestive organs; K62.5 Hemorrhage of anus and rectum; R19.4 Change in bowel habit; K63.5 Polyp of colon | CPT/HCPCS: 45380; 45385 ==